=== PATIENT | male | born 1965 | race Caucasian/White ===

== ENCOUNTER 2024-09-16 11:37 | Emergency (ER) | payer BC ==
[2024-09-16 12:39] LABS: #Basophils 0.03 10x3/uL (0.0-0.2); #Eosinophils 0.04 10x3/uL (0.0-0.5); #Monocytes 0.66 10x3/uL (0.0-1.1); #Neutrophils 1.51 10x3/uL (1.5-8.4); %Basophils 0.9 % (0.0-2.0); %Eosinophils 1.2 % (0.0-6.0); %Lymphocytes 35.1 % (18.0-47.0); %Monocytes 19.1 % (0.0-10.0); %Neutrophils 43.7 % (40.0-75.0); Mean Corpuscular Hemoglobin 31.5 pg (27.0-33.0); Mean Corpuscular Volume 92.6 fL (81.2-95.1); Mean Platelet Volume 10.8 fL (7.4-10.4); Platelet Count 173 10x3/uL (150-450); RBC Distribution Width 12.4 % (11.5-14.5); White Blood Cell (WBC) Count 3.45 10x3/uL (3.5-10.5)
[2024-09-16 12:56] LABS: ALT (SGPT) 36 U/L (8-55); AST (SGOT) 50 U/L (5-34); Albumin 4.1 g/dL (3.5-5.0); Alkaline Phosphatase 83 U/L (40-110); Anion Gap 16 mmol/L (10-20); BUN (Urea Nitrogen) 9 mg/dL (8.4-25.7); Bilirubin, Total 0.6 mg/dL (0.2-1.2); Calc. Creatinine Clearance 0 mL/min (70-130); Calcium 9.5 mg/dL (7.8-10.44); Carbon Dioxide 22 mmol/L (22-29); Chloride 105 mmol/L (98-107); Estimated GFR 77; Globulin 4.4 g/dL (2.4-3.5); Glucose 106 mg/dL (70-105); Potassium 4.6 mmol/L (3.5-5.1); Protein, Total 8.5 g/dL (6.0-8.3); Sodium 138 mmol/L (136-145)
[2024-09-16] MEDS ORDERED: Ventolin HFA Inhaler 60 PUFF INHALER ONE (15:08)
== END 2024-09-16 15:18 | disposition home or self-care (01) ==
LOC: CSHERS 11:37
DX: R10.11 Right upper quadrant pain (principal); I10 Essential (primary) hypertension
CPT/HCPCS: 80053; 85025